=== PATIENT | female | born 2000 | race African-American/Black ===

== ENCOUNTER 2020-04-28 10:17 | Outpatient (CLI) | payer OTHER, SELFPAY ==
--- NOTE | ~2020-04-28 | US_ITS ---
EXAMINATION: US pelvic complete DATE: 04/28/2020 10:59 INDICATION: Pelvic pain, abnormal CT TECHNIQUE: Multiple transabdominal and endovaginal sonographic images of the pelvis were obtained. COMPARISON: 01/13/2016 FINDINGS: The uterus measures 6.5 x 2.7 x 5.4 cm. The endometrial complex measures 3 mm. The left ova ry is not visualized however no left adnexal abnormality is seen. The right ovary measures 3.1 x 1.9 x 2.5 cm. There is normal vascular flow in the right ovary. There is no free fluid in the pelvis. IMPRESSION: 1. No sonographic correlate for the patient's symptoms. Reviewed, dictated and finalized at location A.
== END 2020-04-28 10:18 | disposition home or self-care (01) ==
PROVIDERS: PCP Pediatrics; Visit Provider Pediatrics
DX: R93.89 Abnormal findings on diagnostic imaging of other specified body structures (principal)
CPT/HCPCS: 76856

== ENCOUNTER 2023-02-06 12:09 | Outpatient (CLI) | payer OTHER, SELFPAY ==
[2023-02-06 13:19] LABS: Hemoglobin A1C 5.1 % (<5.7)
[2023-02-06 13:53] LABS: Hepatitis B Surface Antigen Negative (Negative)
[2023-02-06 13:57] LABS: HIV 1/2 Ab P24 Ag Result Negative (Negative)
[2023-02-06 13:59] LABS: HAV RESULT Negative (Negative); Hepatitis B Core IgM Result Negative (Negative)
[2023-02-06 14:10] LABS: Hepatitis C Virus Antibody Negative (Negative)
[2023-02-08 14:00] LABS: Rapid Plasma Reagin Non-Reactive (NonReactive)
== END 2023-02-06 12:10 | disposition home or self-care (01) ==
PROVIDERS: PCP Pediatrics; Visit Provider Obstetrics & Gynecology
DX: Z11.3 Encounter for screening for infections with a predominantly sexual mode of transmission (principal); N89.8 Other specified noninflammatory disorders of vagina
CPT/HCPCS: 36415; 80074; 83036; 86592; 86695; 86696; 86703; G0432